=== PATIENT | female | born 2000 | race Caucasian/White ===

== ENCOUNTER 2020-01-20 14:17 | Outpatient (CLI) | payer BC, SELFPAY ==
[2020-01-20 14:29] LABS: Basophils Absolute Auto 0.02 K/mm3 (0.00-0.10); Basophils Percent Auto 0.3 % (0.0-1.0); Eosinophils Absolute Auto 0.08 K/mm3 (0.02-0.50); Eosinophils Percent Auto 1.2 % (1.0-6.0); Hematocrit 38.3 % (35.0-49.0); Hemoglobin 13.2 g/dL (12.0-15.0); Immature Granulocyte Absolute 0.02 K/mm3 (0.00-0.00); Immature Granulocyte Percent A 0.3 % (0.0-0.0); Lymphocytes Absolute Auto 2.24 K/mm3 (1.10-4.50); Lymphocytes Percent Auto 32.7 % (18.0-42.0); Mean Corpuscular HGB Conc 34.5 g/dL (32.0-36.0); Mean Corpuscular Hemoglobin 31.4 pg (27.0-31.0); Mean Corpuscular Volume 91.2 fL (78.0-102.0); Mean Platelet Volume 10.4 fl (9.2-11.8); Monocytes Absolute Auto 0.42 K/mm3 (0.10-0.90); Monocytes Percent Auto 6.1 % (2.0-11.0); Neutrophils Absolute Auto 4.1 K/mm3 (1.7-7.2); Neutrophils Percent Auto 59.4 % (50.0-70.0); Platelet Count Result 274 K/mm3 (150-420); Red Cell Distribution Width 11.9 % (11.6-14.4); White Blood Count 6.8 K/mm3 (4.8-10.8)
[2020-01-20 15:45] LABS: Alanine Aminotransferase 17 U/L (14-59); Alkaline Phosphatase 81 U/L (50-130); Amylase 43 U/L (25-115); Anion Gap 15.2 mmol/L (7-16); Aspartate Amino Transferase 16 U/L (15-37); Bilirubin,Total 0.6 mg/dL (0.00-1.00); Blood Urea Nitrogen 10 mg/dL (7-18); Calcium 9.4 mg/dL (8.5-10.1); Carbon Dioxide 24 mmol/L (21-32); Chloride 104 mmol/L (98-108); Estimated Glomerular Filt Rate > 60; Glucose 81 mg/dL (70-99); Lipase 84 U/L (73-393); Osmolality Calculated 286 mOsm/kg (285-295); Potassium 4.2 mmol/L (3.5-5.1); Sodium 139 mmol/L (136-145); Total Protein 7.5 g/dL (6.4-8.2)
== END 2020-01-20 14:18 | disposition home or self-care (01) ==
LOC: CHSLAB 14:20
PROVIDERS: PCP Nurse Practitioner Family; Visit Provider Nurse Practitioner Family
DX: R10.9 Unspecified abdominal pain (principal); R11.2 Nausea with vomiting, unspecified
CPT/HCPCS: 36415; 80053; 82150; 83690; 85025

== ENCOUNTER 2020-01-21 09:46 | Outpatient (CLI) | payer BC, SELFPAY ==
--- NOTE | ~2020-01-21 | US_ITS ---
EXAMINATION: US pelvic complete DATE: 01/21/2020 11:46 INDICATION: Pelvic pain, irregular menstrual cycle TECHNIQUE: Multiple transabdominal sonographic images of the pelvis were obtained. COMPARISON: None. FINDINGS: The uterus measures 6.2 x 3.9 x 2.9 cm. The endometrial complex measures 3 mm. The right ov jesus measures 2.5 x 2 x 1.3 cm. The left ovary measures 2.7 x 1.3 x 1.4 cm. There is normal vascular f low in the ovaries. There is no free fluid in the pelvis. IMPRESSION: 1. No sonographic correlate for the patient's symptoms. Reviewed, dictated and finalized at location A.
--- NOTE | ~2020-01-21 | US_ITS ---
EXAMINATION: US abdomen complete DATE: 01/21/2020 11:45 INDICATION: Unspecified abdominal pain TECHNIQUE: Multiple grayscale and Doppler ultrasound images of the abdomen were obtained. COMPARISON: 04/17/2018 FINDINGS: The head, body, and tail of the pancreas are normal. The liver is normal with normal echoge nicity and echotexture. No surface nodularity. Normal hepatopetal flow in the main portal vein. There are multiple stones in the gallbladder. No gallbladder wall thickening or pericholecystic fluid are identified. The normal common bile duct measures 2 mm. There was no sonographic Lowe sign. The visu alized portions of the aorta and inferior vena cava are normal. The right kidney measures 9.3 x 6.3 x 3.6 cm. The left kidney measures 10.9 x 4.5 x 5.5 cm. The kidne ys demonstrate normal parenchymal echogenicity. There is no hydronephrosis. The spleen is normal in a ppearance and measures 7.8 cm. IMPRESSION: 1. Cholelithiasis without evidence of cholecystitis. Reviewed, dictated and finalized at location A.
== END 2020-01-21 09:47 | disposition home or self-care (01) ==
PROVIDERS: PCP Nurse Practitioner Family; Visit Provider Nurse Practitioner Family
DX: R10.2 Pelvic and perineal pain (principal); R10.9 Unspecified abdominal pain; R11.2 Nausea with vomiting, unspecified
CPT/HCPCS: 76700; 76856

== ENCOUNTER 2020-03-28 00:40 | Outpatient (CLI) | payer BC, SELFPAY ==
[2020-03-28 19:29] LABS: SARS-CoV-2 RNA PCR Negative
== END 2020-03-28 00:41 | disposition home or self-care (01) ==
LOC: ANHCOVIDDT 00:40
PROVIDERS: Surgery; PCP Nurse Practitioner Family; Visit Provider Internal Medicine Gastroenterology
DX: Z01.812 Encounter for preprocedural laboratory examination (principal); Z20.828 Contact with and (suspected) exposure to other viral communicable diseases
CPT/HCPCS: 87635; C9803; U0003

== ENCOUNTER 2020-03-31 00:09 | Day surgery (SDC) | payer BC, SELFPAY ==
[2020-03-23 15:51] VITALS: BMI 20.8
[2020-03-31 08:44] VITALS: BP 119/61; PULSE 98; RESP 18; TEMP 36.7; O2SAT 95
[2020-03-31] MEDS: LACTATED RINGERS 1,000 ML 150 ML IV CONT (08:56)
--- NOTE | 2020-03-31 09:09 | P.PNAN_ITS ---
Anes - Initial Pre Proc Eval Procedure: Operation Date: 03/31/20 10:15 Proposed Procedures p Esophagogastroduodenoscopy - Jagdish Smith MD Date/Time: 03/31/20 09:09 Surgeon: Jagdish Smith MD Pre Op Diagnosis: cholelithiasis Patient Data Age: 19 Gender: F Height: 5 ft 1 in Weight: 47.7 kg Last Vital Signs Temp 98.1 F 03/31/20 08:44 Pulse 98 03/31/20 08:44 Resp 18 03/31/20 08:44 BP 119/61 03/31/20 08:44 Pulse Ox 95 03/31/20 08:44 Allergies Allergy/AdvReac Type Severity Reaction Status Date / Time No Known Allergies Allergy Verified 03/31/20 08:43 Home Medications Medication Instructions Recorded Confirmed Type alprazolam 0.25 mg tablet 0.25 mg PO BID PRN #10 tablet 03/16/20 03/23/20 Rx hydroxyzine HCl 25 mg tablet 25 mg PO TID PRN #20 tablet 03/16/20 03/23/20 Rx levonorgestrel-ethinyl estradiol 1 tablet PO DAILY #84 tablet 03/23/20 03/23/20 Rx 0.1 mg-20 mcg tablet Patient hx anesthesia problems: none Family hx anesthesia problems: none PMFSH Social History Social History Smoking status: Never smoker Tobacco type: cigarettes and e-cigarettes/vaping Alcohol intake: never Substance use: current Substance use type: marijuana Last use: STATES USES OCCASIONALLY Additional living arrangements comments: Lives with parents Additional occupation/education comments: [employer] in [place] Gender identity (if verbalized by the patient): Female Spiritual care concerns: No Anes - Eval Final PreProcedure Day of Procedure 03/31/20 09:09 Patient weight: normal Heart: regular rate and rhythm Lungs: clear to auscultation Airway: Mallampati scale class II Neurological: alert and oriented Last oral intake: >/= 8 hours ASA classification: II Emergent: no Anesthetic plan: proceed Anesthesia type and monitoring: general GIVS and standard monitoring Informed Consent: The patient's anesthetic plan and its attendant risks and benefits were discussed with the patient/family/POA. Questions were solicited and answers provided to the satisfaction of the patient/family/POA.
--- NOTE | 2020-03-31 09:57 | PM.HPGS ---
History of Present Illness History of Present Illness Consent: Risks, benefits, and alternatives have been discussed and questions answered. Patient agrees to proceed with procedure. Chief complaint: cholelithiasis Narrative: Farhana Britt is a 19 year old female here with epigastric pain and nausea, ppi did not work Review of Systems Constitutional: Constitutional: Denies headache(s) and Denies weakness Eyes: Eyes: Denies blurry vision ENT: Reports Normal hearing present, Denies headache(s) and Denies neck pain Cardiovascular: Cardiovascular: Denies chest pain and Denies dyspnea Respiratory: Respiratory: Denies dyspnea Gastrointestinal: Gastrointestinal: Reports no additional gastrointestinal complaints Genitourinary: Genitourinary: Denies dysuria Musculoskeletal: Musculoskeletal: Denies neck pain Integumentary/Breasts: Skin/Breast: Denies dry skin Neurologic: Reports Normal hearing present, Denies headache(s) and Denies weakness Psychiatric: Psychiatric: Denies anxiety Endocrine: Endocrine: Denies change in body appearance Hematologic/Lymphatic: Hematologic/Lymphatic: Denies easy bleeding Allergic/Immunologic: Allergic/Immunologic: Denies urticaria [facility] Social History Social History Smoking status: Never smoker Tobacco type: cigarettes and e-cigarettes/vaping Alcohol intake: never Substance use: current Substance use type: marijuana Last use: STATES USES OCCASIONALLY Additional living arrangements comments: Lives with parents 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 [place] Gender identity (if verbalized by the patient): Female Spiritual care concerns: No Meds Home Medications and Allergies Home Medications Medication Instructions Recorded Confirmed Type alprazolam 0.25 mg tablet 0.25 mg PO BID PRN #10 tablet 03/16/20 03/23/20 Rx hydroxyzine HCl 25 mg tablet 25 mg PO TID PRN #20 tablet 03/16/20 03/23/20 Rx levonorgestrel-ethinyl estradiol 1 tablet PO DAILY #84 tablet 03/23/20 03/23/20 Rx 0.1 mg-20 mcg tablet Allergies Allergy/AdvReac Type Severity Reaction Status Date / Time No Known Allergies Allergy Verified 03/31/20 08:43 Vital Signs Vital Signs - 24 hr 03/31/20 08:44 Temperature 98.1 F Pulse Rate 98 Respiratory Rate 18 Blood Pressure 119/61 Pulse Oximetry 95 Exam Const: General: comfortable and no acute distress HENMT: General nose exam: Normal nares present Eyes: General: appearance normal, both eyes and all related structures Neck: Neck: no JVD Resp: Auscultation: clear to auscultation bilaterally Cardio: Rate: regular rate Rhythm: regular rhythm GI: Inspection: non-distended GI Palp: Yes Soft to palpation Skin: General skin exam: normal color Neuro: General: gait normal Speech: normal speech Extrem: General: normal to inspection Psych: Mental Status: mental status grossly normal Assessment and Plan Assessment and plan (1) Epigastric pain: Code(s): R10.13 - Epigastric pain Status: Acute Assessment and Plan: egd with biopsies today (2) Nausea: Code(s): R11.0 - Nausea Status: Acute (3) Cholelithiasis: Code(s): K80.20 - Calculus of gallbladder without cholecystitis without obstruction Status: Acute Assessment and Plan: she will follow up with surgeon
[2020-03-31 10:11] VITALS: BP 83/43; PULSE 75; RESP 21; O2SAT 100
[2020-03-31 10:22] VITALS: BP 98/60; PULSE 67; RESP 20; O2SAT 99
[2020-03-31 10:32] VITALS: BP 100/59; PULSE 72; RESP 21; O2SAT 99
== END 2020-03-31 10:44 | disposition home or self-care (01) ==
PROVIDERS: PCP Nurse Practitioner Family; Visit Provider Internal Medicine Gastroenterology
PROC: 0DJ08ZZ Inspection of Upper Intestinal Tract, Via Natural or Artificial Opening Endoscopic (ICD-10-PCS; CPT 43235; principal; 2020-03-31 10:15)
DX: R10.84 Generalized abdominal pain (principal); R11.0 Nausea; R10.13 Epigastric pain; K80.20 Calculus of gallbladder without cholecystitis without obstruction
CPT/HCPCS: 43239; 88305; J2704; J7120

== ENCOUNTER 2020-04-07 10:29 | Outpatient (CLI) | payer BC, SELFPAY ==
[2020-04-07 10:59] LABS: Alanine Aminotransferase 11 U/L (4-35); Albumin Level 4.3 g/dL (3.7-5.6); Alkaline Phosphatase 76 U/L (45-116); Amylase 76 U/L (30-100); Aspartate Amino Transferase 24 U/L (14-36); Bilirubin,Total 0.7 mg/dL (0.2-1.3); Lipase 90 U/L (23-300)
== END 2020-04-07 10:30 | disposition home or self-care (01) ==
LOC: ANHSURGERY 10:31
PROVIDERS: PCP Nurse Practitioner Family; Visit Provider Surgery
DX: K80.10 Calculus of gallbladder with chronic cholecystitis without obstruction (principal); Z01.812 Encounter for preprocedural laboratory examination
CPT/HCPCS: 36415; 80076; 82150; 83690; 86850; 86900; 86901

== ENCOUNTER 2020-04-13 00:40 | Outpatient (CLI) | payer BC, SELFPAY ==
[2020-04-13 16:32] LABS: SARS-CoV-2 RNA PCR Negative
== END 2020-04-13 00:41 | disposition home or self-care (01) ==
LOC: ANHCOVIDDT 00:40
PROVIDERS: Internal Medicine Gastroenterology; PCP Nurse Practitioner Family; Visit Provider Surgery
DX: Z20.828 Contact with and (suspected) exposure to other viral communicable diseases (principal)
CPT/HCPCS: 87635; C9803; U0003

== ENCOUNTER 2020-04-15 00:36 | Day surgery (SDC) | payer BC, SELFPAY ==
[2020-03-09 15:55] VITALS: BMI 19.8
[2020-04-01 11:51] VITALS: BMI 19.8
--- NOTE | 2020-04-14 14:32 | WPDANESEPPF ---
Anes - Initial Pre Proc Eval Procedure: Operation Date: 04/15/20 12:00 Proposed Procedures p Laparoscopic Cholecystectomy - Radha Dior MD Date/Time: 04/14/20 14:32 Surgeon: Radha Dior MD Pre Op Diagnosis: chronic cholecystitis with cholelithiasis Patient Data Age: 19 Gender: F Height: 1.55 m Weight: 47.63 kg Allergies Allergy/AdvReac Type Severity Reaction Status Date / Time No Known Allergies Allergy Verified 04/01/20 11:51 Home Medications Medication Instructions Recorded Confirmed Type alprazolam 0.25 mg tablet 0.25 mg PO BID PRN #10 tablet 03/16/20 04/01/20 Rx hydroxyzine HCl 25 mg tablet 25 mg PO TID PRN #20 tablet 03/16/20 04/01/20 Rx levonorgestrel-ethinyl estradiol 1 tablet PO DAILY #84 tablet 03/23/20 04/01/20 Rx 0.1 mg-20 mcg tablet Patient hx anesthesia problems: none Family hx anesthesia problems: none [facility] Past Medical History Medical History (Updated 04/14/20 @ 14:33 by Eric Serna MD) Anxiety PANIC ATTACKS Cholelithiasis Contraception management Depression Dizziness Epigastric pain GERD (gastroesophageal reflux disease) Nausea Surgical History Surgical History No history of previous surgery Social History Social History Smoking status: Never smoker Tobacco type: cigarettes and e-cigarettes/vaping Alcohol intake: never Substance use: current Substance use type: marijuana Last use: STATES USES OCCASIONALLY Additional living arrangements comments: Lives with parents Additional occupation/education comments: [employer] in [place] Gender identity (if verbalized by the patient): Female Spiritual care concerns: No Anes - Eval Final PreProcedure Day of Procedure 04/14/20 14:32 Patient weight: overweight Heart: regular rate and rhythm Lungs: clear to auscultation and normal air movement Airway: Mallampati scale class II Neurological: alert and oriented Last oral intake: >/= 8 hours ASA classification: II Emergent: no Anesthetic plan: proceed Anesthesia type and monitoring: general ETT Informed Consent: The patient's anesthetic plan and its attendant risks and benefits were discussed with the patient/family/POA. Questions were solicited and answers provided to the satisfaction of the patient/family/POA.
[2020-04-15] VITALS (8 sets, daily range): BP systolic 104–128; BP diastolic 61–94; PULSE 50–108; RESP 12–20; TEMP 36.4–37.1; O2SAT 100
[2020-04-15] MEDS: LACTATED RINGERS 1,000 ML 30 ML IV CONT ×2 (10:57→12:48)
[2020-04-15] MEDS: KETOROLAC 15 MG/ML VIAL (*BKC) IV PUSH (11:15)
[2020-04-15] MEDS: ACETAMINOPHEN 500 MG TABLET 1000 MG PO (11:16)
--- NOTE | 2020-04-15 11:38 | WPDHPUPDATE1 ---
History and Physical Update Update Date/Time: 04/15/20 11:38 History and Physical has been reviewed, including an updated exam of the patient. There are NO changes in the patient's condition. Risks, benefits, and alternatives have been discussed and questions answered. Patient agrees to proceed with procedure.
--- NOTE | 2020-04-15 11:50 | PM.IMHP ---
H&P: HPI History of Present Illness Date/Time: 04/15/20 11:50 Chief complaint: chronic cholecystitis with cholelithiasis Narrative: Farhana Britt is a 19 year old female presents c 2 yr h/o intermittent postprandial RUQ/epigastric. Pt reports assoc N/V, bloating. Pt has had multiple U/S showing gallstones. Review of Systems Constitutional: Constitutional: Denies anorexia, Denies chills, Denies fatigue, Denies headache(s), Denies malaise, Denies poor appetite, Denies weight gain and Denies weight loss Eyes: Eyes: Denies change in vision ENT: Denies headache(s), Denies hearing loss and Denies sore throat Cardiovascular: Cardiovascular: Denies chest pain, Denies palpitations and Denies dyspnea Respiratory: Respiratory: Denies cough and Denies dyspnea Gastrointestinal: Gastrointestinal: Reports abdominal pain, Reports bloating, Denies change in stool character, Denies constipation, Reports heartburn, Reports diarrhea, Reports nausea and Denies vomiting Genitourinary: Genitourinary: Denies urinary frequency, Denies dysuria and Denies urinary urgency Musculoskeletal: Musculoskeletal: Reports no additional musculoskeletal complaints Integumentary/Breasts: Skin/Breast: Denies pruritus, Denies lesions and Denies wounds Neurologic: Denies confusion and Denies headache(s) Psychiatric: Psychiatric: Reports no additional psychiatric complaints and Denies confusion Endocrine: Endocrine: Reports no additional endocrine complaints, Denies fatigue and Denies palpitations Hematologic/Lymphatic: Hematologic/Lymphatic: Reports no additional hematologic/lymphatic complaints Allergic/Immunologic: Allergic/Immunologic: Reports no additional allergic/immunologic complaints [facility] Past Medical History Medical History Anxiety PANIC ATTACKS Cholelithiasis Contraception management Depression Dizziness Epigastric pain GERD (gastroesophageal reflux disease) Nausea Surgical History Surgical History No history of previous surgery Family History Family History Father Depression Sibling Depression Grandparent Diabetes mellitus Social History Social History Smoking status: Never smoker Tobacco type: cigarettes and e-cigarettes/vaping Alcohol intake: never Substance use: current Substance use type: marijuana Last use: STATES USES OCCASIONALLY Additional living arrangements comments: Lives with parents Additional occupation/education comments: [employer] in [place] Gender identity (if verbalized by the patient): Female Spiritual care concerns: No Meds Home Medications and Allergies Home Medications Medication Instructions Recorded Confirmed Type alprazolam 0.25 mg tablet 0.25 mg PO BID PRN #10 tablet 03/16/20 04/15/20 Rx hydroxyzine HCl 25 mg tablet 25 mg PO TID PRN #20 tablet 03/16/20 04/15/20 Rx levonorgestrel-ethinyl estradiol 1 tablet PO DAILY #84 tablet 03/23/20 04/15/20 Rx 0.1 mg-20 mcg tablet Allergies Allergy/AdvReac Type Severity Reaction Status Date / Time No Known Allergies Allergy Verified 04/01/20 11:51 Vital Signs Vital Signs - 24 hr 04/15/20 11:10 Temperature 36.7 C Pulse Rate 91 Blood Pressure 128/77 Pulse Oximetry 100 Exam Const: General: cooperative, healthy appearing, no acute distress and well developed; No confusion Orientation/consciousness: patient oriented x3 and No confusion HENMT: Head: normal to inspection, normocephalic and atraumatic Mouth: Yes Normal oral and palatal mucosa present and Yes moist mucous membranes Teeth and gingiva: dentition normal Eyes: Conjunctivae: conjunctivae normal Pupils: Equal, round and reactive pupils present EOM: EOMs intact bilaterally Neck: Neck: normal visual inspection, full ROM, no l
[2020-04-15] MEDS: ceFAZolin 2 GM/D5W 50 ML 2 GM/50 ML BAG IVPB (12:00)
[2020-04-15] MEDS: BUPIVACAINE/EPINEPHRINE 0.5% 30 ML VIAL INFILTRATE (12:26)
--- NOTE | 2020-04-15 12:41 | PM.PROC ---
Procedure Note - Detailed Date of procedure: 04/15/20 Pre-op diagnosis: chronic cholecystitis with cholelithiasis Post-op diagnosis: same Procedure performed: laparoscopic cholecystectomy Description of procedure: The patient was taken to the operating room placed in the supine position. After adequate induction of general anesthesia, the patient was prepped and draped in normal sterile fashion. A time-out was then performed to verify the patient's identity as well as the procedure being performed. I then made a 5 mm incision in the infraumbilical region. Through this, a Veress needle was placed into the peritoneal cavity and CO2 gas was then insufflated. After adequate pneumoperitoneum was achieved, the Veress needle was removed and a 5 mm trocar was placed through this incision. I then placed the laparoscope through this trocar site and under direct visualization placed a further 12 mm subxiphoid port as well as 2 additional 5 mm ports in the right upper abdomen. The gallbladder was then identified and was noted to be slightly inflamed. I was able to place a grasper at the dome of the gallbladder and this was retracted anterior and cephalad up over the liver. A 2nd retractor was then placed at the infundibulum and retracted laterally, this allowed visualization of the triangle of Calot. I then was able to visualize the cystic duct in its entirety from its proximal insertion into the gallbladder, to its distal junction with the common hepatic/common bile duct junction. At this point, I carefully skeletonized the proximal cystic duct with the [place] dissector. I then clipped and transected the proximal cystic duct. Next I visualized the cystic artery. Again the artery was skeletonized, clipped, and transected. I then used the Bovie cautery to take down the peritoneal attachments of the gallbladder off the liver bed. Once the gallbladder specimen was completely detached, an endo-pouch was placed through the 12 mm port site. I then placed the gallbladder specimen into the Endo pouch and removed the endo-pouch from the 12 mm port site. The specimen will now be sent to pathology for further review. I then copiously irrigated the right upper quadrant. Hemostasis was noted in the liver bed, the clips were noted to be in good position on both the cystic duct stump and the cystic artery stump. No other pathology was noted in the right upper quadrant. I then moved the laparoscope to the subxiphoid port. No iatrogenic injury or other pathology was noted in the lower abdomen. At this point, the abdomen was desufflated and all ports removed. The fascia of the 12 mm subxiphoid port was closed with a 0 Vicryl figure of 8 suture. All port sites were then closed with 4.O Monocryl subcuticular sutures. Dermabond was placed on each incision. The patient tolerated the procedure well, was extubated in the operating room postoperative and will be transferred to the recovery room in stable condition. Implants: none Anesthesia: GETA Surgeon: Radha Dior MD Estimated blood loss (mL): 5 Drains: No Packing: No Pathology: yes Complications: No immediate complications Condition: stable Disposition: PACU Findings: chronic cholecystitis
== END 2020-04-15 14:32 | disposition home or self-care (01) ==
PROVIDERS: PCP Nurse Practitioner Family; Visit Provider Surgery
PROC: 0FT44ZZ Resection of Gallbladder, Percutaneous Endoscopic Approach (ICD-10-PCS; CPT 47562; principal; 2020-04-15 12:00)
DX: K80.10 Calculus of gallbladder with chronic cholecystitis without obstruction (principal); F41.8 Other specified anxiety disorders
CPT/HCPCS: 47562; 88304; A9270; J0690; J1100; J1170; J1885; J2250; J2405; J2704; J2710; J3010; J7030; J7120

== ENCOUNTER 2022-06-10 09:59 | Outpatient (CLI) | payer BC, SELFPAY ==
--- NOTE | ~2022-06-10 | US_ITS ---
EXAMINATION: US pelvic complete DATE: 06/10/2022 11:14 INDICATION: Pelvic and perineal pain. TECHNIQUE: Multiple transabdominal sonographic images of the pelvis were obtained. COMPARISON: Ultrasound 01/21/2020 FINDINGS: The uterus measures 7.0 x 3.2 x 2.8 cm. There is no free fluid in the pelvis. The endometrial complex measures 6 mm in thickness. The right ovary measures 3.2 x 3.2 x 1.8 cm. There is normal vascular fl ow in the right ovary. The left ovary is not visualized. IMPRESSION: 1. Normal uterus and right ovary. Left ovary not visualized. Reviewed, dictated and finalized at location A.
== END 2022-06-10 10:00 | disposition home or self-care (01) ==
LOC: CHSIMG 10:06
PROVIDERS: PCP Nurse Practitioner Family; Visit Provider Nurse Practitioner Family
DX: R10.2 Pelvic and perineal pain (principal)
CPT/HCPCS: 76856

== ENCOUNTER 2024-10-31 15:57 | Outpatient (NON) | payer BC, SELFPAY ==
--- OUTSIDE RECORDS SUMMARY | 2024-10-31 16:24 | XMS_ITS | Clinical Summary ---
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 Gender Identity Not on file Sexual Orientation Not on file Plan of Treatment Health Maintenance Due Date Last Done Comments Cervical Cancer Screening Pa p Smear (Age 21 to 29) Every 3 Years 2000 Cervical Cancer Screening 2000 Annual Physical 12/07/2003 HPV Vaccines (1 - 3-dose series) 12/07/2015 Meningococcal B Vaccine (1 o f 2 - Standard) 2016 Hepatitis C 2018 DTaP, Tdap and Td Vaccines ( 1 - Tdap) 12/07/2019 Hepatitis B Vaccines (1 of 3 - 19+ 3-dose series) 12/07/2019 COVID-19 Vaccine ( - 2023-2 5 season) 2024 Influenza Adult (#1) 2024 Meningococcal Vaccine Aged Out No henry elaine eligible based on patient's age to complete this topic Pneumococcal Vaccine: Pediat rics (0 to 5 Years) and At-Risk Patients (6 to 64 Years) Aged Out No longer eligible b ased on patient's age to complete this topic RSV Immunizations Under 20 Months Aged Out No longer eligible based on patient's age to complete this topic
--- OUTSIDE RECORDS SUMMARY | 2024-10-31 16:24 | XMS_ITS | Clinical Summary ---
Author Organization [facility] Address [address] [place] [address] Care Team Providers Care Engineering Surveyor Name Role Phone Alexis Tovar MD Primary Care Provider [phone] Alexis Tovar MD Unavailable [phone] Source Comments [facility],non-owned Affiliates and Associated Physician Practices is amultiple site organization consisting of ambulatory clinics and hospital sitesin [place], [place], [place] and [place]. This disclosure is being madepursuant to the Care Everywhere program and may not contain all information available regarding this patient. Last updated 18.[facility] Allergies No known active allergies Medications * Be aware that medications may not be up to date on this document. Alwaysverify current medications with the patient. Medication Sig Dispensed Refills Start Date End Date Status buPROPion XL 24hr (WELLBUTRIN-XL) 150 MG tablet Take 150 mg by mouth once daily Active omeprazole (PRILOSEC) 20 MG capsule Take 1 capsule by mouth 2 times daily 30 capsule 3 05/21/2018 Active Active Problems Problem Noted Date Diagnosed Date Abdominal pain 05/18/2018 Social History Tobacco Use Types Packs/Day Years Used Date Smoking Tobacco: Passive Smo ke Exposure - Never Smoker Smokeless Tobacco: Never Sex and Gender Information Value Date Recorded Sex Assigned at Not on file Gender Identity Not on file Sexual Orientation Not on file Last Filed Vital Signs Vital Sign Reading Time Taken Comments Blood Pressure 122/74 05/21/2018 10:51 AM CDT Pulse 77 04/24/2018 11:02 AM CDT per pcp Temperature 37.2 C (99 F) 04/24/2018 11:02 AM CDT per pcp Respiratory Rate - - Oxygen Saturation 98% 04/24/2018 11:02 AM CDT per pcp Inhaled Oxygen Concentration - - Weight 46.9 kg (103 lb 6.3 oz) 05/21/2018 10:51 AM CDT Height 154.4 cm (5' 0.79 ) 05/21/2018 10:51 AM C DT Body Mass Index 19.67 05/21/2018 10:51 AM CDT Plan of Treatment Health Maintenance Due Date Last Done Comments PAP SMEAR 2000 HIV SCREENING 12/07/2015 HPV VACCINE (1 - 3-dose series) 12/07/2015 CHLAMYDIA/GONORRHEA SCREENING 2016 MENINGOCOCCAL (Group B) VACC INE SHARED DECISION-MAKING (1 of 2 - Standard) 2016 HEPATITIS C SCREENING 12/02/2018 DTAP/TDAP/TD VACCINES (1 - Tdap) 12/07/2019 HEPATITIS B VACCINE (1 of 3 - 19+ 3-dose series) 12/07/2019 COVID-19 VACCINE (1 - 2023-2 5 season) 2024 INFLUENZA VACCINE (#1) 2024 DEPRESSION SCREENING 08/07/2024 ZOSTER VACCINE (1 of 2) 2050 HIB VACCINE Aged Out No longer eligi ble based on patient's age to complete this topic MENINGOCOCCAL GROUPS A/C/Y/W VACCINE Aged Out No longer eligible b ased on patient's age to complete this topic PNEUMOCOCCAL VACCINE Aged Out No long er eligible based on patient's age to complete this topic Care Teams Engineering Surveyor Relationship Specialty Start Date End Date Alexis Tovar MD [address] [place] [id number] PCP - General 04/02/20 Alexis Tovar MD [address] [place] [id number] Family Medicine 04/02/20
[2024-11-02 03:33] LABS: Bacterial Vaginosis NEGATIVE (NEGATIVE)
== END 2024-10-31 15:58 | disposition home or self-care (01) ==
PROVIDERS: Visit Provider Nurse Practitioner Family
DX: N89.8 Other specified noninflammatory disorders of vagina (principal)
CPT/HCPCS: 81513; 87070